=== PATIENT | male | born 1980 | race Caucasian/White ===

== ENCOUNTER 2018-04-08 15:51 | Emergency (ER) | payer MEDICAID ==
[~2018-04-08] VITALS: Ht 180.3 cm; Wt 72.6 kg
[2018-04-08 15:55] VITALS: BP 144/90
--- NOTE | 2018-04-08 16:08 | NUR ---
37 YO MALE BIB EMS FROM [facility] C/O EPIGASTRIC PAIN FOR THREE DAYS. STATESS DARK TARRY STOOL X 5 TIMES TODAY. SKIN IS PINK/WARM/DRY; AAOX4 WITH EVEN AND STEADY GAIT; LUNGS CLEAR BL; HR EVEN AND REGULAR. PATIENT STATES PAIN OF 3/10 AT THIS TIME. PATIENT POSITIONED FOR COMFORT; HOB ELEVATED; BEDRAILS UP X2; BED DOWN. ER MD MADE AWARE OF PT STATUS.
--- NOTE | 2018-04-08 16:29 | NUR ---
LAB AT BEDSIDE.
[2018-04-08 16:44] LABS: BASOPHILS % (AUTO) 0.1 % (0.0-2.0); EOSINOPHILS % (AUTO) 0.1 % (0.0-4.0); HEMOGLOBIN 13.2 g/dL (12.0-18.0); LYMPHOCYTES # (AUTO) 0.4 K/uL (2.0-11.5); LYMPHOCYTES % (AUTO) 6.4 % (20.5-51.1); MEAN CORPUSCULAR HEMOGLOBIN 29 pg (27-31); MEAN CORPUSCULAR HGB CONC 32 g/dL (33-37); MEAN CORPUSCULAR VOLUME 89.3 fL (80-94); MONOCYTES # (AUTO) 1.3 K/uL (0.8-1.0); MONOCYTES % (AUTO) 20.5 % (1.7-9.3); NEUTROPHILS # (AUTO) 4.6 K/uL (1.8-7.7); NEUTROPHILS % (AUTO) 72.9 % (42.2-75.2); PLATELET COUNT (AUTO) 293 K/uL (140-450); RED BLOOD CELL COUNT(AUTO) 4.59 MIL/uL (4.20-6.10); RED CELL DISTRIBUTION WIDTH 13.9 % (11.6-13.7); WHITE BLOOD COUNT (AUTO) 6.2 K/uL (4.8-10.8)
--- NOTE | 2018-04-08 16:53 | NUR ---
PT CAN'T PROVIDE URINE AT THIS TIME.
[2018-04-08 16:58] LABS: ALBUMIN 3.3 g/dL (3.4-5.0); ANION GAP 11.5 (8-16); CARBON DIOXIDE 28.2 mmol/L (21-32); CREATININE 0.9 mg/dL (0.7-1.3); TOTAL BILIRUBIN 0.5 mg/dL (0.0-1.0)
--- NOTE | 2018-04-08 17:07 | NUR ---
PT TAKEN TO CT
--- NOTE | 2018-04-08 17:16 | NUR ---
PT REURNED FROM CT. Addendum: 04/08/18 at 1723 by [email or web address] PT STATED HE'S ROSASRYNeda MORILLO N/V AT THIS TIME.
--- NOTE | 2018-04-08 17:23 | NUR ---
PROVIDED FOOD AT THIS TIME.
[2018-04-08 18:27] LABS: POTASSIUM 2.7 mmol/L (3.5-5.1)
--- NOTE | 2018-04-08 18:28 | NUR ---
PT CAN'T PROVIDE URINE AT THIS TIME. NOTIFIED DR ARTHUR.
[2018-04-08] MEDS ORDERED: NACL 0.9% 1,000 ML IV ONE (18:30)
[2018-04-08] MEDS ORDERED: POTASSIUM CHL 10 MEQ/D5-1/2NS 1,000 ML IV ONE (18:30)
[2018-04-08] MEDS ORDERED: POTASSIUM CHLORIDE 10 MEQ TABER PO ONE (18:30)
--- NOTE | 2018-04-08 18:42 | NUR ---
Attempted to place IV, patient unable to cooperate, patient continued to bend. MD aware, stated he will order PO.
--- NOTE | 2018-04-08 18:54 | NUR ---
[facility] PT COVERED IN GOWN DURING PROCEDOFE.
[2018-04-08 19:10] VITALS: BP 119/76
--- NOTE | 2018-04-08 19:10 | NUR ---
Patient discharged with v/s stable. Written and verbal after care instructions given and explained. Patient alert, oriented and verbalized understanding of instructions. Ambulatory with steady gait. All questions addressed prior to discharge. ID band removed. Patient advised to follow up with PMD. Rx of KEFLEX AND POTASSIUM given. Patient educated on indication of medication including possible reaction and side effects. Opportunity to ask questions provided and answered.
== END 2018-04-08 19:10 | disposition home or self-care (01) ==
LOC: MED 15:51
DX: E87.6 Hypokalemia (principal); R10.9 Unspecified abdominal pain; R19.7 Diarrhea, unspecified; M54.9 Dorsalgia, unspecified
CPT/HCPCS: 36415; 80053; 83690; 85025; 93005; 99284